=== PATIENT | male | born 1955 | race Caucasian/White ===

== ENCOUNTER 2021-03-09 19:43 | Emergency (ER) | payer BC, MEDICARE ==
[2021-03-09] MEDS ORDERED: Ondansetron 4 MG/2 ML SDV IVPUSH ONE (19:59)
[2021-03-09] MEDS ORDERED: Sodium Chloride 0.9% 1,000 ML IV ONE (19:59)
[2021-03-09] MEDS ORDERED: Morphine 4 MG/ML Syringe IVPUSH ONE (19:59)
[2021-03-09] MEDS ORDERED: Tamsulosin 0.4 MG Cap.ER PO ONE (20:40)
[2021-03-09 20:49] LABS: CARBON DIOXIDE,CO2 30.6 mmol/L (21.0-32.0); POTASSIUM,K 4.2 mmol/L (3.5-5.1)
--- NOTE | 2021-03-09 21:34 | EDM.PDOC ---
<Iggy Cruz - Last Filed: 03/10/21 03:35> ED HPI GENERAL MEDICAL PROBLEM - General Chief Complaint: Flank Pain Stated Complaint: KIDNEY PAIN Time Seen by Provider: 03/09/21 19:57 - Related Data Allergies Allergy/AdvReac Type Severity Reaction Status Date / Time No Known Allergies Allergy Verified 03/09/21 19:54 Home Meds: Home Meds Ondansetron [Zofran ODT] 4 mg PO Q6H PRN #10 tab.dis 03/09/21 [Rx] Tamsulosin [Tamsulosin 24 Hr] 0.4 mg PO DAILY #10 cap.er 03/09/21 [Rx] ED ROS GENERAL - Review of Systems Review Of Systems: Comprehensive ROS is negative, except as noted in HPI. ED EXAM, RENAL/ - Physical Exam Exam: See Below Text/Narrative:: Physical exam is reported by Dr. Diaz elsewhere in this record Departure - Departure Time of Disposition: 22:49 Disposition: Home, Self-Care 01 Condition: Good Clinical Impression: Ureteric colic, Ureteral stone - Discharge Information Prescriptions: Tamsulosin [Tamsulosin 24 Hr] 0.4 mg PO DAILY #10 cap.er Ondansetron [Zofran ODT] 4 mg PO Q6H PRN #10 tab.dis PRN Reason: Nausea/Vomiting Instructions: Kidney Stones, [id number] Referrals: PCP,Not In Area [Primary Care Provider] - Forms: ED Department Discharge Additional Instructions: Increase fluids. Follow-up with your doctor. Take your CD of your CT to your doctor. Prescription for Flonase was sent to [place] pharmacy here. They open at 8 AM. [facility] [address] [place] [id number] [address] [address] The following information is given to patients seen in the emergency department who are being discharged to home. This information is to outline your options for follow-up care. We provide all patients seen in our emergency department with a follow-up referral. The need for follow-up, as well as the timing and circumstances, are variable depending upon the specifics of your emergency department visit. If you don't have a primary care physician on staff, we will provide you with a referral. We always advise you to contact your personal physician following an emergency department visit to inform them of the circumstance of the visit and for follow-up with them and/or the need for any referrals to a consulting specialist. The emergency department will also refer you to a specialist when appropriate. This referral assures that you have the opportunity for follow-up care with a specialist. All of these measure are taken in an effort to provide you with optimal care, which includes your follow-up. Under all circumstances we always encourage you to contact your private physician who remains a resource for coordinating your care. When calling for follow-up care, please make the office aware that this follow-up is from your recent emergency room visit. If for any reason you are refused follow-up, please contact the [facility] Emergency Department at and asked to speak to the emergency department charge nurse. <Joe Mathur E - Last Filed: 03/10/21 10:22> ED HPI GENERAL MEDICAL PROBLEM - General Source of Information: Reports: Patient History Limitations: Reports: No Limitations - History of Present Illness INITIAL COMMENTS - FREE TEXT/NARRATIVE: HISTORY AND PHYSICAL: History of present illness: Patient is a 65-year-old male who presents to the emergency room with complaints of right flank pain. Patient states he has a past medical history of kidney stones, few months ago had a lithotripsy on the left. He was told he had a 4 mm stone in the right kidney but at that time it had not bothered him. Today he has had right flank pain that has not improved with Tylenol and ibuprofen. He does plan on returning to [place] tomorrow (home) and states he was able to call and get an ultrasound scheduled with his primary care provider for later this week although felt the pain was bad enough he needed to be evaluated now for pain management. He does have some mild nausea associated with the pain -no vomiting. Patient denies any injury, trauma or falls. Patient denies any fever, chills, headache, change in vision, syncope or near syncope. Denies any chest pain, back pain, shortness of breath or cough. Denies any abdominal pain, diarrhea, constipation or dysuria. He denies any testicular pain, redness or swelling. Denies any penile discharge. Has not noted any blood in urine or stool. Patient has been eating and drinking appropriately. Review of systems: As per history of present illness and below otherwise all systems reviewed and negative. Past medical history: As per history of present illness and as reviewed below otherwise noncontributory. Surgical history: As per history of present illness and as reviewed below otherwise noncontributory. Social history: See social history for further information Family history: As per history of present illness and as reviewed below otherwise noncontributory. Physical exam: General: Well developed and well nourished 65-year-old male. Alert and orientated x 3. Nontoxic in appearance and in no acute distress. Vital signs are stable and have been reviewed by me. Nursing notes were reviewed. HEENT: Atraumatic, normocephalic, pupils equal and reactive bilaterally, negative for conjunctival pallor or scleral icterus, mucous membranes moist, trachea midline. No drooling or trismus noted. No meningeal signs. No hot potato voice noted. Lungs: Clear to auscultation bilaterally. No wheezes, rales, or rhonchi. Chest nontender. Normal work of breathing, no accessory muscles used. Heart: S1S2, regular rate and rhythm without overt murmur, gallops, or rubs. No JVD. No peripheral edema Abdomen: Soft, nondistended, nontender. Normoactive bowel sounds. Negative for masses. +Right-sided costovertebral tenderness. Skin: Intact, warm, dry. No lesions or rashes noted. Hematologic: No petechiae or purpra. Mucosa appropriate color and normal nail bed color and refill. Extremities: Atraumatic, moves all extremities per self without difficulty or deficits, negative for cords or calf pain. Neurovascular unremarkable. Neuro: Awake, alert, oriented. Cranial nerves II through XII unremarkable. Cerebellum unremarkable. Motor and sensory unremarkable throughout. Exam nonfocal. Psychiatric: Mood and affect are appropriate. Normal thought process. Answering questions appropriately. Notes: *This patient was seen and evaluated during the 2019 SARS-CoV-2 novel coronavirus pandemic period. Community viral transmission is ongoing at time of this encounter and the emergency department is operating under pandemic response procedures. Patient is a 65-year-old male who presents to the emergency room with complaints of right flank pain. He is concerned he has a kidney stone. He was told a few months ago that he had a 4 mm stone in the kidney. He had lithotripsy on the right stating "I wish that he would take them both of them out". At that time he was not having any right flank pain. Pain started today. He does plan on returning to [place] tomorrow. Patient's physical exam shows positive right- sided flank tenderness to palpation. He does have moderate to severe pain with nausea. We will do basic lab work, CT of the abdomen and pelvis without and give him medication/fluids. CT of the abdomen shows mild right hydronephrosis and proximal right hydroureter produced by a 3 millimeter proximal ureteral calculus located at the L3-4 level. Minimal additional nonobstructive right nephrolithiasis with a 5 millimeter calculus in the upper pole of the right kidney. Minimal cholelithiasis with no sign acute cholecystitis. Moderate diverticulosis of the descending colon with no sign of diverticulitis. CT of the pelvis shows moderate sigmoid diverticulosis with no sign of diverticulitis. Moderate enlargement of the prostate. I have talked with the patient about today's findings, in addition to providing specific details for plan of care. Reassessment at the time of disposition demonstrates that the patient is in no acute distress. The patient is stable for discharge, counseling was provided and we discussed in great detail signs and symptoms that would prompt them to return to the Emergency Department. Medication, follow up and supportive care measures were reviewed and discussed. Voices understanding and is agreeable to plan of care. Denies any further questions or concerns at this time. Diagnostics: CBC, CMP, UA, CT abdomen and pelvis without Therapeutics: IV fluid, morphine, Zofran, Impression: Kidney Stone, Right Plan: Increase fluids. Follow-up with your doctor. Take your CD of your CT to your doctor. Prescription for Flonase was sent to [place] [facility] here. They open at 8 AM. Definitive disposition and diagnosis as appropriate pending reevaluation and review of above. Right Flank Pain Score (Numeric/FACES): 7 Past Medical History HEENT History: Reports: Impaired Vision Cardiovascular History: Reports: Hypertension Genitourinary History: Reports: Renal Calculus Endocrine/Metabolic History: Reports: Obesity/BMI 30+ - Infectious Disease History Infectious Disease History: Reports: Chicken Pox, Measles - Past Surgical History Cardiovascular Surgical History: Reports: Cardiac Ablation Male Surgical History: Reports: Renal Calculus, Ureteral Stent Social & Family History - Tobacco Use Tobacco Use Status *Q: Never Tobacco User Second Hand Smoke Exposure: No - Recreational Drug Use Recreational Drug Use: No ED ROS GENERAL - Review of Systems Review Of Systems: Comprehensive ROS is negative, except as noted in HPI. ED EXAM, RENAL/ - Physical Exam Exam: See Below Course - Vital Signs Last Recorded V/S: Last Vital Signs Temp 97.6 F 03/09/21 19:48 Pulse 80 03/09/21 23:11 Resp 18 03/09/21 23:11 BP 158/77 H 03/09/21 23:11 Pulse Ox 98 03/09/21 23:11 - Orders/Labs/Meds Labs: Laboratory Tests 03/09/21 03/09/21 03/09/21 Range/Units 20:00 20:18 20:18 WBC 12.48 H (4.0-11.0) K/uL RBC 4.95 (4.50-5.90) M/uL Hgb 14.9 (13.0-17.0) g/dL Hct 43.7 (38.0-50.0) % MCV 88.3 (80.0-98.0) fL MCH 30.1 (27.0-32.0) pg MCHC 34.1 (31.0-37.0) g/dL RDW Std Deviation 43.7 (28.0-62.0) fl RDW Coeff of Sheila 14 (11.0-15.0) % Plt Count 162 (150-400) K/uL MPV 11.00 (7.40-12.00) fL Neut % (Auto) 76.3 (48.0-80.0) % Lymph % (Auto) 14.7 L (16.0-40.0) % [place] % (Auto) 7.9 (0.0-15.0) % Eos % (Auto) 0.9 (0.0-7.0) % Baso % (Auto) 0.2 (0.0-1.5) % Neut # (Auto) 9.5 H (1.4-5.7) K/uL Lymph # (Auto) 1.8 (0.6-2.4) K/uL [place] # (Auto) 1.0 H (0.0-0.8) K/uL Eos # (Auto) 0.1 (0.0-0.7) K/uL Baso # (Auto) 0.0 (0.0-0.1) K/uL Nucleated RBC % 0.0 /100WBC Nucleated RBCs # 0 K/uL Sodium 140 (136-148) mmol/L Potassium 4.2 (3.5-5.1) mmol/L Chloride 104 (98-107) mmol/L Carbon Dioxide 30.6 (21.0-32.0) mmol/L BUN 24 H (7.0-18.0) mg/dL Creatinine 1.6 H (0.8-1.3) mg/dL Est Cr Clr Drug Dosing 49.85 mL/min Estimated GFR (MDRD) 43.5 ml/min Glucose 121 H (74-106) mg/dL Calcium 9.2 (8.5-10.1) mg/dL Total Bilirubin 0.8 (0.2-1.0) mg/dL AST 30 (15-37) IU/L ALT 53 (14-63) IU/L Alkaline Phosphatase 93 (46-116) U/L Total Protein 7.5 (6.4-8.2) g/dL Albumin 4.2 (3.4-5.0) g/dL Globulin 3.3 (2.6-4.0) g/dL Albumin/Globulin Ratio 1.3 (0.9-1.6) Urine Color YELLOW Urine Appearance SLT CLOUDY Urine pH 6.0 (5.0-8.0) Ur Specific [place] 1.025 (1.001-1.035) Urine Protein NEGATIVE (NEGATIVE) mg/dL Urine Glucose (UA) NEGATIVE (NEGATIVE) mg/dL Urine Ketones NEGATIVE (NEGATIVE) mg/dL Urine Occult Blood MODERATE H (NEGATIVE) Urine Nitrite NEGATIVE (NEGATIVE) Urine Bilirubin NEGATIVE (NEGATIVE) Urine Urobilinogen 1.0 (<2.0) EU/dL Ur Leukocyte Esterase NEGATIVE (NEGATIVE) Urine RBC 60-70 (0-2/HPF) Urine WBC 0-3 (0-5/HPF) Ur Epithelial Cells RARE (NONE-FEW) Urine Bacteria FEW (NEGATIVE) Meds: Medications Discontinued Medications Generic Name Dose Route Start Last Admin Trade Name Freq PRN Reason Stop Dose Admin Sodium Chloride 1,000 mls @ 999 mls/hr 03/09/21 19:59 03/09/21 20:27 Normal Saline IV 03/09/21 20:59 999 mls/hr STAT ONE Administration Morphine Sulfate 4 mg 03/09/21 19:59 03/09/21 20:28 Morphine 4 Mg/Ml Syringe IVPUSH 03/09/21 20:00 4 mg ONETIME ONE Administration Ondansetron HCl 4 mg 03/09/21 19:59 03/09/21 20:29 Ondansetron 4 Mg/2 Ml Sdv IVPUSH 03/09/21 20:00 4 mg ONETIME ONE Administration Tamsulosin HCl 0.4 mg 03/09/21 20:40 03/09/21 21:45 Tamsulosin 0.4 Mg Cap.Er PO 03/09/21 20:41 0.4 mg ONETIME ONE Administration Sepsis Event Note (ED) - Focused Exam Vital Signs: Vital Signs Pulse Resp BP Pulse Ox 03/09/21 23:11 80 18 158/77 H 98
--- NOTE | 2021-03-09 22:36 | CT ---
INDICATION: Right flank pain. History of stones. COMPARISON: None available TECHNIQUE: CT examination of the abdomen and pelvis was performed without contrast enhancement using 2.5 mm thick axial sections from the lung bases through the pubic symphysis. Oral contrast was not administered. Please note that all CT scans at this facility use dose modulation, iterative reconstruction, and/or weight-based dosing when appropriate to reduce radiation dose to as low as reasonably achievable. FINDINGS: In the abdomen, the unenhanced liver, spleen, pancreas, and adrenals are normal in appearance. There is mild right hydronephrosis and proximal right hydroureter produced by a 3 millimeter proximal ureteral calculus located at the L3-4 level. There is a nonobstructive 5 by 2 millimeter calculus located in the upper pole of the right kidney. There is a 2.6 centimeter cyst arising from the anterior upper pole of the right kidney. There is no sign of any additional right ureteral calculi. On the left, there is no sign of nephrolithiasis, ureterolithiasis, hydronephrosis, or hydroureter. There is no sign of any left renal mass or cyst. There is minimal cholelithiasis, with a few tiny dependent calculi in the gallbladder. There is no sign of gallbladder wall thickening or pericholecystic fluid. The abdominal aorta is normal in caliber with no sign of dilatation. There is no sign of retroperitoneal mass or adenopathy. The stomach, loops of small bowel, and right colon in the abdomen are normal in appearance. There is moderate diverticulosis of the descending colon with no sign of diverticulitis. There is a small fat containing periumbilical hernia. In the pelvis, the appendix is normal in appearance with no sign of inflammatory process. There is moderate sigmoid diverticulosis without evidence of diverticulitis. The loops of small bowel and colon in the pelvis are otherwise normal in appearance. The prostate is moderately enlarged and is otherwise normal in appearance. The urinary bladder is normal in appearance. There is no sign of pelvic or inguinal mass or adenopathy. There is no sign of free air or free fluid in the abdomen or pelvis. The lung bases are clear. There is fusion of L4 through S1 in anatomic alignment with complete absence of the disc spaces. There is mild scoliosis of the lumbar spine convex towards the left. IMPRESSION: CT of the abdomen shows mild right hydronephrosis and proximal right hydroureter produced by a 3 millimeter proximal ureteral calculus located at the L3-4 level. Minimal additional nonobstructive right nephrolithiasis with a 5 millimeter calculus in the upper pole of the right kidney. Minimal cholelithiasis with no sign acute cholecystitis. Moderate diverticulosis of the descending colon with no sign of diverticulitis. CT of the pelvis shows moderate sigmoid diverticulosis with no sign of diverticulitis. Moderate enlargement of the prostate. Please note that all CT scans at this facility use dose modulation, iterative reconstruction, and/or weight-based dosing when appropriate to reduce radiation dose to as low as reasonably achievable. Dictated by Devonte Suárez MD @ 03/09/2021 10:36:[address] Devonte Suárez @ Mar 09 2021 10:36PM
== END 2021-03-09 23:00 | disposition home or self-care (01) ==
LOC: MW.ED 19:43
DX: N13.2 Hydronephrosis with renal and ureteral calculous obstruction (principal); I10 Essential (primary) hypertension; E66.9 Obesity, unspecified; Z68.37 Body mass index [BMI] 37.0-37.9, adult
CPT/HCPCS: 36415; 74176; 80053; 81001; 85025; 96374; 96375; 99284; A9270; J2270; J2405; J7030